=== PATIENT | female | born 2000 | race Caucasian/White ===

== ENCOUNTER 2023-09-08 06:20 | Inpatient (IN) ==
[2023-09-08] MEDS ORDERED: D5 1/2 NS 1,000 ML 1,000 ML IV SCH (06:37)
[2023-09-08] MEDS ORDERED: ZOFRAN INJ 4 MG VIAL IVP PRN (06:37)
[2023-09-08] MEDS ORDERED: PITOCIN IVP ONE (06:37)
[2023-09-08] MEDS ORDERED: REGLAN INJ 10 MG VIAL IVP PRN (06:37)
[2023-09-08] MEDS ORDERED: STADOL INJ IVP PRN (06:37)
[2023-09-08] MEDS: LR 1,000 ML IV 1,000 ML IV ONE ×2 (06:55→08:39)
[2023-09-08 07:05] LABS: BASOPHILS # (AUTO) 0.1 X10^3/uL (0.0-0.1); BASOPHILS % (AUTO) 0.7 % (0.2-1.0); EOSINOPHILS # (AUTO) 0.1 x10^3/uL (0.0-0.2); HEMATOCRIT 39.4 % (36.0-47.0); HEMOGLOBIN 12.9 g/dL (12.0-16.0); LYMPHOCYTES # (AUTO) 2.2 X10^3/uL (1.3-2.9); LYMPHOCYTES % (AUTO) 27.4 % (21.0-51.0); MEAN CORPUSCULAR HEMOGLOBIN 27.7 pg (27.0-34.0); MEAN CORPUSCULAR HGB CONC 32.9 g/dL (33.0-35.0); MEAN CORPUSCULAR VOLUME 84.1 fL (80.0-100.0); MEAN PLATELET VOLUME 11.2 fL (7.4-11.0); MONOCYTES # (AUTO) 0.4 x10^3/uL (0.3-0.8); MONOCYTES % (AUTO) 5.4 % (0.0-13.0); NEUTROPHILS # (AUTO) 5.1 x10^3/uL (2.2-4.8); NEUTROPHILS % (AUTO) 65.5 % (42.0-75.0); PLATELET COUNT 131 X10^3/uL (150.0-450.0); RED BLOOD COUNT 4.68 X10^6/uL (3.5-5.4); WHITE BLOOD COUNT 7.8 X10^3/uL (3.6-10.0)
[2023-09-08 07:15] LABS: ALANINE AMINOTRANSFERASE 13 Units/L (12-78); ASPARTATE AMINO TRANSFERASE 15 Units/L (15-37); BLOOD UREA NITROGEN 10 mg/dL (7-18); CALCIUM 9.1 mg/dL (8.5-10.1); CARBON DIOXIDE 23.6 mmol/L (21-32); CHLORIDE 101 mmol/L (98-107); CREATININE 0.77 mg/dL (0.55-1.02); GLUCOSE 76 mg/dL (65-99); LACTATE DEHYDROGENASE 202 Units/L (81-234); POTASSIUM 4.1 mmol/L (3.5-5.1); SODIUM 139 mmol/L (136-145); URIC ACID 4.8 mg/dL (2.6-6.0); eGFR NON BLACK RACES > 60 (>60)
[2023-09-08] MEDS: OXYTOCIN 20 UNIT/1,000 ML-NS 20 UNIT/1,000 ML PLAST..BAG IV PRN (07:15)
--- NOTE | 2023-09-08 07:16 | DR.OB ---
OB QUICK NOTE Assessment/Plan (1) Active labor at term: Assessment/Plan: L&D 09/08/23 at 7:00am S-No complaint. O-Afebrile,VSS [id number]=[id number] with good LTV, +accel, no decel. CTX=none CVX=2cm/75%/-1/VTX AROM with clear fluid. IUPC and FSE placed. A-IUP at 38 3/7 weeks for induction PIH P-Begin pitocin induction F/U labs and preeclamptic labs Anticipate
[2023-09-08 07:30] LABS: PLATELET MORPHOLOGY COMMENT NORMAL (NORMAL)
[2023-09-08] MEDS: NUBAIN INJ 20 MG AMP IVP PRN (08:22)
[2023-09-08] MEDS: NUBAIN INJ 200 MG VIAL MULTIDOSE ONE (08:37)
[2023-09-08] MEDS: NAROPIN EPIDURAL 0.2% 100 ML ONE (09:15)
[2023-09-08] MEDS: FENTANYL VIAL INJ 100 mcg ONE (09:15)
[2023-09-08 10:19] LABS: APPEARANCE,URINE MUCOID (CLEAR); COLOR,URINE YELLOW (YELLOW)
[2023-09-08 10:20] LABS: BILIRUBIN,URINE NEGATIVE (NEGATIVE); BLOOD/HEMOGLOBIN,URINE 1+ (NEGATIVE); GLUCOSE, URINE NEGATIVE (NEGATIVE); KETONES,URINE 1+ (NEGATIVE); LEUKOCYTE ESTERASE ,URINE 1+ (NEGATIVE); NITRITES,URINE NEGATIVE (NEGATIVE); PROTEIN,URINE 3+ (NEGATIVE); RBC,URINE 0-2 /HPF (0-3); UROBILINOGEN,URINE NORMAL (NORMAL)
[2023-09-08 10:21] LABS: BACTERIA,URINE TRACE /HPF (NEGATIVE); SQUAMOUS EPITHELIAL CELL,UR RARE /HPF (NEGATIVE)
--- NOTE | 2023-09-08 11:47 | DR.OB ---
OB QUICK NOTE Assessment/Plan (1) Active labor at term: Assessment/Plan: L&D 09/08/23 at 11:40am Pitocin=10mu/min. S-No complaint. s/p epidural. Preeclamptic labs unremarkable. O-Afebrile,VSS UXD=042 with good LTV, +accel, no decel. CTX=q 1 1/2 min., about 45-55mmHg CVX=8cm/100%/0 A-IUP at 38 3/7 weeks for induction PIH P-Cont. pitocin induction Anticipate
[2023-09-08] MEDS ORDERED: OXYTOCIN 20 UNIT/1,000 ML-NS 20 UNIT/1,000 ML PLAST..BAG IV SCH (14:00)
[2023-09-08] MEDS ORDERED: MOTRIN TAB 800 MG PO PRN (14:42)
[2023-09-08] MEDS ORDERED: AMBIEN PO PRN (14:42)
[2023-09-08] MEDS ORDERED: DERMOPLAST PAIN RELIEF SPRAY TOP PRN (14:42)
[2023-09-08] MEDS ORDERED: MILK OF MAGNESIA PO PRN (14:42)
[2023-09-08] MEDS ORDERED: ADACEL or BOOSTRIX TDaP VACCINE IM ONE (14:42)
[2023-09-08] MEDS: PITOCIN ONE (16:33)
[2023-09-08] MEDS: BETADINE SOLN ONE ×2 (16:34)
[2023-09-09 04:58] LABS: HEMATOCRIT 29.8 % (36.0-47.0)
[2023-09-09 05:09] LABS: HEMOGLOBIN 9.7 g/dL (12.0-16.0)
--- NOTE | 2023-09-09 07:11 | DR.OB ---
OB QUICK NOTE Assessment/Plan (1) Active labor at term: Assessment/Plan: Delivery Note (late entry) 09/08/23 at 13:38 Patient complete and pushing. Head delivered over intact perineum. No nuchal cord. Nose and mouth bulb suctioned. Body delivered over intact perineum. Cord clamped x 2 and cut. handed to attendant. Cord sent for gases. Placenta delivered spontaneously / intact / 3 vessel cord. No CVX / vaginal / perineal tears. Viable male infant delivered by , VTX/OA, wt=7'1" and 8/9, stable to NBN. Mother stable to RR. ZAL=[id number].
[2023-09-09] MEDS: PROTONIX TAB 40 MG PO SCH (08:31)
[2023-09-09] MEDS: PRENATAL PLUS PO SCH (08:31)
[2023-09-09 08:33] VITALS: RESP 18
[2023-09-09] MEDS: MOTRIN TAB 800 MG PO PRN (08:33)
[2023-09-09 09:00] VITALS: BP 140/85; PULSE 60; TEMP 97.8; O2SAT 98
== END 2023-09-09 15:00 | disposition home or self-care (01) | DRG 807 ==
LOC: LD 06:20 → MED/SURG 15:16
PROVIDERS: ADMIT Specialist; ATTEND Specialist
DX: O99.613 Diseases of the digestive system complicating pregnancy, third trimester; Z37.0 Single live birth; Z01.812 Encounter for preprocedural laboratory examination; Z3A.38 38 weeks gestation of pregnancy; O13.3 Gestational [pregnancy-induced] hypertension without significant proteinuria, third trimester; K21.9 Gastro-esophageal reflux disease without esophagitis; N87.0 Mild cervical dysplasia; O99.891 Other specified diseases and conditions complicating pregnancy